=== PATIENT | female | born 2000 | race Caucasian/White ===

== ENCOUNTER 2025-03-28 14:42 | Outpatient (REF) | payer OTHER, SELFPAY ==
--- OUTSIDE RECORDS SUMMARY | 2025-03-28 16:06 | XMS_ITS | Encounter Summary ---
Author Organization [facility] [place] [address] Care Team Providers Care Principal Technologist Name Role Phone Lidia Moreno MD Primary Care Provider Reason for Visit * Reason Onset Date Comments Referral 03/28/2025 Encounter Details Date Type Department Care Team ([facility] st Contact Info) Description 03/28/2025 Telephone Adult Medicine - [place] [address] [place] [id number] Lidia Moreno MD [address] [place] [address] Referral Social History Tobacco Use Types Packs/Day Years Used Date Smoking Tobacco: Never Smokeless Tobacco: Never Alcohol Use Standard Drinks/Week Comments Never 0 (1 standard drink = 0.6 oz pur e alcohol) Housing Instability Answer Date Recorde d Are you worried that in the next 2 months you may not have stable housing? No 03/06/2025 Food Access & Nutrition Answer Date Rec orded Do you have access to a vari ety of food including fruits and vegetables? Yes 03/06/2025 Access to Healthcare Answer Date Record ed Within the last 3 months, ho w many times did you visit the emergency department for your medical care? 0 03/06/2025 Health Literacy Answer Date Recorded How often do you need to hav e someone help you when you read instructions, pamphlets, or other written material from your doctor or pharmacy? Never 03/06/2025 Caregiver: How often do you need to have someone help you when you read instructions, pamphlets, or other written material from your doctor or pharmacy? Not on file 03/06/2025 Financial Risk Answer Date Recorded How hard is it for you to pa y for the very basics like food, housing, medical care, and air conditioning / heating? Not very hard 03/06/2025 Transportation Answer Date Recorded Has the lack of transportati on kept you from meetings, work, or from getting things needed for daily living? No Has the lack of transportati on kept you from medical appointments or from getting medications? No 03/06/2025 Social Isolation Answer Date Recorded How often do you feel lonely or isolated from th ose around you? Never 03/06/2025 Food Risk Answer Date Recorded Within the past 12 months we worried whether our food would run out before we got money to buy more. Never true 03/06/2025 Within the past 12 months th e food we bought just didn't last and we didn't have money to get more. Never true 03/06/2025 Dependent Care Answer Date Recorded Do you need help finding or paying for care for your loved ones. For example, childbirth educator or elderly care for an older adult? No 03/06/2025 Education Answer Date Recorded Do you think completing more education or training, like finishing a GED, going to college, or learning a trade, would be helpful for you? No 03/06/2025 Employment and Income Answer Date Recor ded During the last four weeks, have you been actively looking for work? No 03/06/2025 Living Situation Answer Date Recorded What is your living situation? 0 03/06/2025 Comments No Sex and Gender Information Value Date Recorded Sex Assigned at Not on file Legal Sex Female 11:29 PM EST Gender Identity Not on file Sexual Orientation Not on file documented as of this encounter Progress Notes * Oscar Bautista - 03/28/2025 11:48 AM EDT Pt calling in regards to test results from 03/25/25 for h. pylori. Asking if a referral can be ordered so pt can be seen at [facility] for this. Pls advise, pt does not have any specific offices in mind. Call can be returned to [phone]. Thx. documented in this encounter Plan of Treatment Upcoming Encounters Date Type Department Care Team (Late st Contact Info) Description 06/14/2025 8:30 AM EDT Office Visit Orthopedic Surgery - [place] [facility] [address] [place] [phone] Yanira Mchugh MD [address] [facility] [address] [place] [phone] 09/09/2025 11:00 AM EST Office Visit Adult Medicine - [place] [address] [place] [phone] Lukas Francis PA [address] [place] [address] documented as of this encounter Goals Goal Patient Goal Type Associated Problems Recent Progress Patient-Stated? Author <enter goal here> General No change( 024 4:57 PM EST) Yes Mahnaz Lanier, OT Note: HAVE LESS PAIN AND MORE STRENGTH RIGHT HAND documented as of this encounter Visit Diagnoses Not on filedocumented in this encounter Additional Health Concerns Assessment Noted Time PHQ-9 Depression Total Score: 0 03/06/20 25 3:31 PM EDT documented as of this encounter Care Teams Principal Technologist Relationship Specialty Start Date End Date Lidia Moreno MD [address] [address] PCP - General Internal Medicine 10/26/21 documented as of this encounter
[2025-03-28 16:26] LABS: T4 Thyroxine 7.7 ug/dL (4.5-12.0)
[2025-03-30 04:34] LABS: T3 Uptake 30 % (22-35)
== END 2025-03-28 14:43 | disposition home or self-care (01) ==
LOC: HO.LAB 14:42
PROVIDERS: PCP Family Medicine; Visit Provider Psychiatry & Neurology Neurology
DX: R25.1 Tremor, unspecified (principal)
CPT/HCPCS: 36415; 84436; 84479